=== PATIENT | male | born 1985 | race Caucasian/White ===

== ENCOUNTER 2019-01-04 09:53 | Emergency (ER) | payer BC ==
[2019-01-04] MEDS ORDERED: Ketorolac 30 MG/ML SDV IM ONE (10:33)
--- NOTE | 2019-01-04 10:57 | EDM.PDOC ---
ED HPI GENERAL MEDICAL PROBLEM - General Chief Complaint: Back Pain or Injury Stated Complaint: BACK PAIN Time Seen by Provider: 01/04/19 10:53 - History of Present Illness INITIAL COMMENTS - FREE TEXT/NARRATIVE: 33 y/o male here complaining of low back pain. States that he has a history of herniated lumbar discs about 10 years ago. Pain had been under control until the past 2 weeks. It has been getting worse with some paresthesias down right leg. No nausea, vomiting. No saddle anesthesia or troubles with bowel movements. He is able to ambulate without assistance. sensation and strength intact in lower extremities. Denies any recent trauma to back. He works at [employer] where he has s physically demanding job. right lower back Pain Score (Numeric/FACES): 10 - Related Data Allergies Allergy/AdvReac Type Severity Reaction Status Date / Time Penicillins Allergy Other Verified 01/04/19 10:02 Home Meds: Home Meds Diclofenac Sodium [Voltaren] 75 mg PO BIDMEALS PRN 15 Days #30 tab.cr 01/04/19 [ Rx] Orphenadrine [Norflex] 100 mg PO BID PRN 15 Days #30 tab 01/04/19 [Rx] predniSONE [Prednisone] 40 mg PO DAILY 5 Days #10 tablet 01/04/19 [Rx] Past Medical History Musculoskeletal History: Reports: Back Pain, Chronic Neurological History: Reports: Other (See Below) Other Neuro History: sciatica nerve pain Psychiatric History: Reports: Other (See Below) Other Psychiatric History: Tourretes - Infectious Disease History Infectious Disease History: Reports: TB - Past Surgical History HEENT Surgical History: Reports: Myringotomy w Tube(s) Social & Family History - Family History Family Medical History: Noncontributory - Tobacco Use Smoking Status *Q: Current Every Day Smoker Years of Tobacco use: 1 Packs/Tins Daily: 1 - Recreational Drug Use Recreational Drug Use: No ED ROS GENERAL - Review of Systems Review Of Systems: ROS reveals no pertinent complaints other than HPI. ED EXAM,LOWER BACK PAIN/INJURY - Physical Exam Exam: See Below General Appearance: Alert, WD/WN, No Apparent Distress Respiratory/Chest: No Respiratory Distress, Lungs Clear Cardiovascular: Normal Peripheral Pulses, Regular Rate, Rhythm GI/Abdominal: Normal Bowel Sounds, Soft, Non-Tender Back Exam: Muscle Spasm, Paraspinal Tenderness, Vertebral Tenderness, Other ( tenderness on lumbar spine and paraspinal muscles.) Extremities: Normal Inspection, No Pedal Edema, Other (some right leg paresthesias) Skin Exam: Warm, Dry Course - Vital Signs Text/Narrative:: Lumbar xray, toradol 60 mg IM once, Norflex 60 mg IM once. lumbar spine xray unremarkable, no acute fractures Last Recorded V/S: Last Vital Signs Temp 36.5 C 01/04/19 10:03 Pulse 87 01/04/19 10:03 Resp 18 01/04/19 10:03 BP 118/76 01/04/19 10:03 Pulse Ox 97 01/04/19 10:03 - Orders/Labs/Meds Meds: Medications Discontinued Medications Generic Name Dose Route Start Last Admin Trade Name Mian PRN Reason Stop Dose Admin Ketorolac Tromethamine 60 mg 01/04/19 10:33 01/04/19 11:11 Toradol IM 01/04/19 10:34 60 mg ONETIME ONE Administration Ketorolac Tromethamine Confirm 01/04/19 11:14 Toradol Administered 01/04/19 11:15 Dose 30 mg .ROUTE .STK-MED ONE Orphenadrine Citrate 60 mg 01/04/19 10:33 01/04/19 11:17 Norflex IM 01/04/19 10:34 Not Given NOW STA Departure - Departure Time of Disposition: 11:18 Disposition: Home, Self-Care 01 Clinical Impression: Low back pain - Discharge Information *PRESCRIPTION DRUG MONITORING PROGRAM REVIEWED*: Not Applicable *COPY OF PRESCRIPTION DRUG MONITORING REPORT IN PATIENT TOM: Not Applicable Prescriptions: Diclofenac Sodium [Voltaren] 75 mg PO BIDMEALS PRN 15 Days #30 tab.cr PRN Reason: Pain Orphenadrine [Norflex] 100 mg PO BID PRN 15 Days #30 tab PRN Reason: Muscle Spasm predniSONE [Prednisone] 40 mg PO DAILY 5 Days #10 tablet Referrals: PCP,Unknown [Primary Care Provider] - Forms: ED Department Discharge Additional Instructions: The following information is given to patients seen in the emergency department who are being discharged to home. This information is to outline your options for follow-up care. We provide all patients seen in our emergency department with a follow-up referral. The need for follow-up, as well as the timing and circumstances, are variable depending upon the specifics of your emergency department visit. If you don't have a primary care physician on staff, we will provide you with a referral. We always advise you to contact your personal physician following an emergency department visit to inform them of the circumstance of the visit and for follow-up with them and/or the need for any referrals to a consulting specialist. The emergency department will also refer you to a specialist when appropriate. This referral assures that you have the opportunity for follow-up care with a specialist. All of these measure are taken in an effort to provide you with optimal care, which includes your follow-up. Under all circumstances we always encourage you to contact your private physician who remains a resource for coordinating your care. When calling for follow-up care, please make the office aware that this follow-up is from your recent emergency room visit. If for any reason you are refused follow-up, please contact the [facility] Emergency Department at and asked to speak to the emergency department charge nurse. Follow-up with your PCP in 1-2 weeks.
[2019-01-04] MEDS ORDERED: Ketorolac 30 MG/ML SDV ONE (11:14)
--- NOTE | 2019-01-04 11:15 | CR ---
EXAMINATION: Lumbar spine HISTORY: Pain COMPARISON: None TECHNIQUE: AP and lateral FINDINGS: The lumbar spinal alignment is normal. The vertebral body heights and disc spaces appear maintained. SI joints are symmetric. No fracture or acute osseous abnormality. Bone mineralization is normal. 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 IMPRESSION: Grossly unremarkable lumbar spine.
== END 2019-01-04 11:35 | disposition home or self-care (01) ==
LOC: MW.ED 09:53
DX: M54.5 Low back pain (principal); F17.210 Nicotine dependence, cigarettes, uncomplicated; Z88.0 Allergy status to penicillin; Z96.22 Myringotomy tube(s) status
CPT/HCPCS: 72100; 96372; 99283; J1885

== ENCOUNTER 2019-08-14 13:06 | Observation (INO) | payer BC ==
[2019-08-14] MEDS ORDERED: methylPREDNISolone Sodium Succinate 125 MG/2 ML SDV IVPUSH ONE (13:08)
[2019-08-14] MEDS ORDERED: Ketorolac 30 MG/ML SDV IVPUSH ONE (13:13)
--- NOTE | 2019-08-14 13:18 | EDM.PDOC ---
ED HPI GENERAL MEDICAL PROBLEM - General Chief Complaint: Back Pain or Injury Stated Complaint: BACK PAIN AND SOB Time Seen by Provider: 08/14/19 13:08 Source of Information: Reports: Patient History Limitations: Reports: No Limitations - History of Present Illness INITIAL COMMENTS - FREE TEXT/NARRATIVE: HISTORY AND PHYSICAL: History of present illness: Patient is a 33-year-old male who presents to the emergency room with complaints of low lumbar back pain that radiates into his right glutes and down his leg. Patient states he has a history of chronic back pain with sciatica (10 + years). Reports for the past week he has been getting over the flu, while outside today he had a coughing fit and moved wrong. He said during that coughing fit he felt immediate sharp pain to his low lumbar back which "brought me to my knees". He called EMS to transport him to the emergency room. He denies hitting his head or having any injury related to being "brought to his knees". Denies any urinary or fecal incontinence. Although he has a tingling sensation down the right leg he has full sensation to bilateral distal extremities. Patient denies any fever, chills, headache, change in vision, syncope or near syncope. Denies any chest pain, back pain, shortness of breath or cough. Denies any abdominal pain, nausea, vomiting, diarrhea, constipation or dysuria. Has not noted any blood in urine or stool. Patient has been eating and drinking appropriately. Review of systems: As per history of present illness and below otherwise all systems reviewed and negative. Past medical history: As per history of present illness and as reviewed below otherwise noncontributory. Surgical history: As per history of present illness and as reviewed below otherwise noncontributory. Social history: See social history for further information Family history: As per history of present illness and as reviewed below otherwise noncontributory. Physical exam: General: Well-developed and well-nourished 33-year-old male. Alert and oriented. Nontoxic-appearing and in no acute distress. HEENT: Atraumatic, normocephalic, pupils equal and reactive bilaterally, negative for conjunctival pallor or scleral icterus, mucous membranes moist, TMs normal bilaterally, throat clear, neck supple, nontender, trachea midline. No drooling or trismus noted. No meningeal signs. No hot potato voice noted. Lungs: Clear to auscultation, breath sounds equal bilaterally, chest nontender. Heart: S1S2, regular rate and rhythm without overt murmur Abdomen: Soft, nondistended, nontender. Negative for masses or hepatosplenomegaly. Negative for costovertebral tenderness. C-spine/Back: No pinpoint vertebral tenderness upon palpation. No crepitus, step -offs or obvious deformities. Patient is able to move around on the cot and has good equal force of bilateral lower extremities. Good sensation to bilat LE. Denies any urinary or fecal incontinence. Good rectal tone (done with consent and pretzel packer at bedside). Denies any numbness, tingling or saddle paresthesia. Skin: Intact, warm, dry. No lesions or rashes noted. Extremities: Atraumatic, moves all extremities per self without difficulty or deficits, negative for cords or calf pain. Neurovascular unremarkable. Neuro: Awake, alert, oriented. Cranial nerves II through XII unremarkable. Cerebellum unremarkable. Motor and sensory unremarkable throughout. Exam nonfocal. Notes: Patient had 100 mcg of fentanyl prior to arrival by EMS. He is requesting something additional for pain. Norflex, Toradol and Solu-Medrol given at this time. Patient reports he got no relief from the medications he received. We will give 1 mg of Dilaudid. Imaging findings disc bulging of the left neural foramina causing stenosis (patient has no pain to left side). Posterior spurring into the right neural foramina impinging upon the right L4 nerve root with nerve root appearing to be swollen. These findings were shared with the patient. We discussed the need for follow up with his PCP; would like him to have an MRI. He states its been about 10 years since he has had an MRI. Upon preparing the patient for discharge he states he is in too much pain to ambulate. Nursing staff did attempt to get the patient up and states he is unable to. Dr. Lambert was consulted on this case and is agreeable to keeping him for pain management for observation. Patient is aware and agreeable to plan of care. Basic lab work was added at this time. Diagnostics: LS CT, CBC, CMP, [employer]: Toradol, Norflex, Solu-Medrol, Dilaudid Prescription: Gabapentin, Medrol Impression: Intractable back pain Plan: Observation admission to med/surg Definitive disposition and diagnosis as appropriate pending reevaluation and review of above. lower back, down right leg Pain Score (Numeric/FACES): 9 - Related Data Allergies Allergy/AdvReac Type Severity Reaction Status Date / Time Penicillins Allergy Other Verified 08/14/19 13:12 sulfamethoxazole Allergy Other Verified 08/14/19 13:12 [From Bactrim] trimethoprim [From Bactrim] Allergy Other Verified 08/14/19 13:12 Home Meds: Home Meds Naproxen Sodium [Aleve] 1 tab PO BID 08/14/19 [History] Past Medical History Musculoskeletal History: Reports: Back Pain, Chronic Neurological History: Reports: Other (See Below) Other Neuro History: sciatica nerve pain Psychiatric History: Reports: Other (See Below) Other Psychiatric History: Tourretes - Infectious Disease History Infectious Disease History: Reports: TB - Past Surgical History HEENT Surgical History: Reports: Myringotomy w Tube(s) Social & Family History - Family History Family Medical History: Noncontributory ED ROS GENERAL - Review of Systems Review Of Systems: Comprehensive ROS is negative, except as noted in HPI. ED EXAM,LOWER BACK PAIN/INJURY - Physical Exam Exam: See Below (See dictation) Course - Vital Signs Last Recorded V/S: Last Vital Signs Temp 98.1 F 08/14/19 13:07 Pulse 80 08/14/19 14:28 Resp 20 08/14/19 14:28 BP 118/67 08/14/19 14:28 Pulse Ox 97 08/14/19 14:28 - Orders/Labs/Meds Orders: Active Orders 24 hr Category Date Time Status Admission Status [Patient Status] [ADT] Stat ADT 08/14/19 15:13 Ordered Cardiac Monitoring [RC] . DIRECTED Care 08/14/19 15:13 Ordered CBC WITH AUTO DIFF [HEME] Stat Lab 08/14/19 15:13 Ordered COMPREHENSIVE METABOLIC PN,CMP [CHEM] Stat Lab 08/14/19 15:13 Ordered UA RFX JAZMIN AND CULT IF INDIC [URIN] Stat Lab 08/14/19 15:13 Ordered Meds: Medications Discontinued Medications Generic Name Dose Route Start Last Admin Trade Name Freq PRN Reason Stop Dose Admin Hydromorphone HCl 1 mg 08/14/19 14:28 08/14/19 14:37 Dilaudid IVPUSH 08/14/19 14:29 1 mg ONETIME ONE Administration Ketorolac Tromethamine 30 mg 08/14/19 13:13 08/14/19 13:33 Toradol IVPUSH 08/14/19 13:14 30 mg ONETIME ONE Administration Methylprednisolone Sodium Succinate 125 mg 08/14/19 13:08 08/14/19 13:34 Solu-Medrol IVPUSH 08/14/19 13:09 125 mg ONETIME ONE Administration Orphenadrine Citrate 60 mg 08/14/19 13:13 08/14/19 13:36 Norflex IM 08/14/19 13:14 60 mg ONETIME ONE Administration Departure - Departure Time of Disposition: 14:49 Disposition: Refer to Observation Clinical Impression: Intractable low back pain - Discharge Information Instructions: Sciatica, [id number] Referrals: PCP,None [Primary Care Provider] - Forms: ED Department Discharge Additional Instructions: The following information is given to patients seen in the emergency department who are being discharged to home. This information is to outline your options for follow-up care. We provide all patients seen in our emergency department with a follow-up referral. The need for follow-up, as well as the timing and circumstances, are variable depending upon the specifics of your emergency department visit. If you don't have a primary care physician on staff, we will provide you with a referral. We always advise you to contact your personal physician following an emergency department visit to inform them of the circumstance of the visit and for follow-up with them and/or the need for any referrals to a consulting specialist. The emergency department will also refer you to a specialist when appropriate. This referral assures that you have the opportunity for follow-up care with a specialist. All of these measure are taken in an effort to provide you with optimal care, which includes your follow-up. Under all circumstances we always encourage you to contact your private physician who remains a resource for coordinating your care. When calling for follow-up care, please make the office aware that this follow-up is from your recent emergency room visit. If for any reason you are refused follow-up, please contact the [facility] Emergency Department at and asked to speak to the emergency department charge nurse. [facility] [address] [place] [id number] [facility] [address] [facility] [place] [address] 1. The medication you received today does cause drowsiness, so do not drive for the remaining day 2. When resting please lay on a flat firm surface. Limit your immobility to prevent muscle stiffness. Get up to ambulate/move around/gentle stretching multiple times throughout the day. May alternate heat and ice to the painful areas 3. Tylenol and Ibuprofen as needed for back pain. Gabapentin is a controlled medication, this medication may cause drowsiness a do not take it will driving her needing to be functioning outside of the house. 4. Please follow-up with your primary care provider as we discussed. Would like you to get an MRI in the future. Return to the ED as needed and as discussed. Sepsis Event Note - Evaluation Sepsis Screening Result: No Definite Risk - Focused Exam Vital Signs: Vital Signs Temp Pulse Resp BP Pulse Ox 08/14/19 14:28 80 20 118/67 97 08/14/19 13:07 98.1 F 87 26 H 122/71 100 Date Exam was Performed: 08/14/19 Time Exam was Performed: 15:14 - My Orders Last 24 Hours: My Active Orders 08/14/19 15:13 Admission Status [Patient Status] [ADT] Stat Cardiac Monitoring [RC] . DIRECTED CBC WITH AUTO DIFF [HEME] Stat COMPREHENSIVE METABOLIC PN,CMP [CHEM] Stat UA RFX JAZMIN AND CULT IF INDIC [URIN] Stat - Assessment/Plan Last 24 Hours: My Active Orders 08/14/19 15:13 Admission Status [Patient Status] [ADT] Stat Cardiac Monitoring [RC] . DIRECTED CBC WITH AUTO DIFF [HEME] Stat COMPREHENSIVE METABOLIC PN,CMP [CHEM] Stat UA RFX JAZMIN AND CULT IF INDIC [URIN] Stat
[2019-08-14] MEDS ORDERED: HYDROmorphone 1 MG/ML Syringe IVPUSH ONE (14:28)
--- NOTE | 2019-08-14 14:32 | CT ---
CT lumbar spine Technique: Multiple axial sections were obtained from above the T8-9 disc inferiorly through the lower sacrum. Reconstructed sagittal and coronal images were reviewed. Findings: T8-9: Mild disc space narrowing is seen. Posterior disc shows no discrete herniation. No central canal stenosis or neural foraminal stenosis is seen. Mild degenerative apophyseal change is noted on both sides. T9-10: Moderate disc space narrowing is noted. No focal disc herniation is seen. No central canal stenosis or neural foraminal stenosis is seen. Moderate degenerative apophyseal change is noted with spurring and vacuum phenomena. T10-11: Posterior disc space narrowing is seen. Posterior disc is preserved. No central canal stenosis or neural foraminal stenosis is seen. Mild degenerative apophyseal change is seen. T11-12: Posterior disc space narrowing is seen. Posterior disc is preserved. No central canal stenosis or neural foraminal stenosis is seen. Mild degenerative apophyseal change is seen. T12-L1: Slight posterior disc space narrowing is seen. Posterior disc is preserved. No central canal stenosis or neural foraminal stenosis is seen. Mild degenerative apophyseal change is seen. L1-2: Mild posterior disc space narrowing is seen. Posterior disc is preserved. No central canal stenosis or neural foraminal stenosis is seen. Mild degenerative apophyseal change is seen. L2-3: Disc height is preserved. Posterior disc is maintained. No central canal stenosis or neural foraminal stenosis is seen. L3-4: Mild disc space narrowing is seen. Slight circumferential disc bulge is present. Posterior disc maintains a minimally concave margin. No central canal stenosis or neural foraminal stenosis is seen. Minimal degenerative apophyseal change is seen. L4-5: Posterior spurring seen into the right neural foramina which impinges upon the exiting right L4 nerve root and appears to cause swelling of this nerve root. Left neural foramina is patent. No central canal stenosis is seen. Slight circumferential disc bulge is seen. L5-S1: Asymmetric disc bulge or herniation seen into the left neural foramina. This causes left-sided neural foraminal stenosis. Right neural foramina is patent with a nerve root exits. No central canal stenosis is seen. No fracture is appreciated. Mild scoliosis is noted. No abnormal subluxation is seen. Impression: 1. Disc bulge or herniation into the left neural foramina causing left-sided neural foraminal stenosis. Left exiting nerve root not visualized with certainty. 2. Posterior spurring into the right neural foramina impinging upon the right L4 nerve root with nerve root appearing to be swollen. 3. Other mild scattered degenerative change as noted above. MRI would be helpful to confirm above findings if clinically needed. Diagnostic code #3 This report was dictated in [place] Standard Time
[2019-08-14 15:50] LABS: BLOOD UREA NITROGEN,BUN 20 mg/dL (7.0-18.0); CARBON DIOXIDE,CO2 28.1 mmol/L (21.0-32.0); CHLORIDE,CL 105 mmol/L (98-107); GLUCOSE RANDOM 99 mg/dL (74-106); POTASSIUM,K 4.5 mmol/L (3.5-5.1); SODIUM,NA 142 mmol/L (136-148)
[2019-08-14] MEDS ORDERED: Acetaminophen 325 MG Tab PO PRN (17:19)
[2019-08-14] MEDS ORDERED: Sodium Chloride 0.9% 10 ML Syringe FLUSH PRN (17:20)
[2019-08-14] MEDS ORDERED: Sodium Chloride 0.9% 2.5 ML Syringe FLUSH PRN (17:20)
[2019-08-14] MEDS ORDERED: Morphine 2 MG/ML Syringe IVPUSH PRN (17:20)
[2019-08-14] MEDS: oxyCODONE 5 MG Tab PO PRN (18:25)
[2019-08-14] MEDS ORDERED: Ibuprofen 400 MG Tab PO PRN (23:01)
[2019-08-14] MEDS ORDERED: Ondansetron 4 MG Tab.DIS PO PRN (23:01)
--- NOTE | 2019-08-14 23:12 | PCM.HP.2 ---
H&P History of Present Illness - General Date of Service: 08/14/19 Admit Problem/Dx: Admission Diagnosis/Problem Admission Diagnosis/Problem Intractable back pain - History of Present Illness Initial Comments - Free Text/Narative: 33 yo male with past medial history of chronic back pain who presented to the ED with acute flare of his back pain. Patient reports his back had not been bothering him for several years. He reported having the flu two weeks ago. He states he had a coughing fit that triggered his back pain. He reports pain in his lower back that radiates down to the right leg. The pain was severe enough that he was unable to walk. He called EMS and the brought him to the ER. IN the ER he had a CT scan of the lumbar spine which reported disc bulge into the left neural foramina causing left sided neural foraminal stenossi, Posterior spurring nto the right neural foraminal impinging upon the right L4 nerve root. lower back, down right leg Pain Score (Numeric/FACES): 9 - Related Data Allergies/Adverse Reactions: Allergies Allergy/AdvReac Type Severity Reaction Status Date / Time Penicillins Allergy Other Verified 08/14/19 17:17 sulfamethoxazole Allergy Other Verified 08/14/19 17:17 [From Bactrim] trimethoprim [From Bactrim] Allergy Other Verified 08/14/19 17:17 Home Medications: Home Meds Naproxen Sodium [Aleve] 1 tab PO BID 08/14/19 [History] Past Medical History Respiratory History: Reports: Asthma Musculoskeletal History: Reports: Back Pain, Chronic Neurological History: Reports: Other (See Below) Other Neuro History: sciatica nerve pain Psychiatric History: Reports: Other (See Below) Other Psychiatric History: Tourretes - Infectious Disease History Infectious Disease History: Reports: TB Other Infectious Disease History: Patient stated he underwent treatment for 9 months - Past Surgical History HEENT Surgical History: Reports: Myringotomy w Tube(s) Social & Family History - Family History Family Medical History: Noncontributory - Tobacco Use Smoking Status *Q: Current Every Day Smoker Years of Tobacco use: 12 Packs/Tins Daily: 1 Second Hand Smoke Exposure: No - Caffeine Use Caffeine Use: Reports: Energy Drinks, Tea - Recreational Drug Use Recreational Drug Use: No H&P Review of Systems - Review of Systems: Review Of Systems: Comprehensive ROS is negative, except as noted in HPI. Exam - Vital Signs Vital Signs: Last Vital Signs Temp 36.6 C 08/14/19 19:45 Pulse 90 08/14/19 19:45 Resp 16 08/14/19 19:45 BP 127/60 08/14/19 19:45 Pulse Ox 95 08/14/19 19:45 Weight: 106.594 kg - Exam General: Alert, Oriented HEENT: Mucosa Moist & [place] Neck: Supple, Trachea Midline Lungs: Clear to Auscultation, Normal Respiratory Effort Cardiovascular: Regular Rate, Regular Rhythm GI/Abdominal Exam: Normal Bowel Sounds, Soft, Non-Tender Back Exam: Paraspinal Tenderness (lower lumbar, sacral area) Extremities: Normal Inspection, Non-Tender, No Pedal Edema Skin: Warm, Dry, Intact Neurological: Cranial Nerves Intact, Reflexes Equal Bilateral, Strength Equal Bilateral, Normal Tone, Sensation Intact, Other (full range of motion of both legs and feet.). No: Focal Deficit - Patient Data Lab Results Last 24 hrs: Laboratory Results - last 24 hr 08/14/19 08/14/19 08/14/19 Range/Units 15:22 15:22 19:15 WBC 14.08 H (4.0-11.0) K/uL RBC 5.10 (4.50-5.90) M/uL Hgb 16.5 (13.0-17.0) g/dL Hct 46.4 (38.0-50.0) % MCV 91.0 (80.0-98.0) fL MCH 32.4 H (27.0-32.0) pg MCHC 35.6 (31.0-37.0) g/dL RDW Std Deviation 41.5 (28.0-62.0) fl RDW Coeff of [place] 12 (11.0-15.0) % Plt Count 370 (150-400) K/uL MPV 9.70 (7.40-12.00) fL Neut % (Auto) 87.5 H (48.0-80.0) % Lymph % (Auto) 7.4 L (16.0-40.0) % [place] % (Auto) 4.5 (0.0-15.0) % Eos % (Auto) 0.4 (0.0-7.0) % Baso % (Auto) 0.2 (0.0-1.5) % Neut # (Auto) 12.3 H (1.4-5.7) K/uL Lymph # (Auto) 1.0 (0.6-2.4) K/uL [place] # (Auto) 0.6 (0.0-0.8) K/uL Eos # (Auto) 0.1 (0.0-0.7) K/uL Baso # (Auto) 0.0 (0.0-0.1) K/uL Nucleated RBC % 0.0 /100WBC Nucleated RBCs # 0 K/uL Sodium 142 (136-148) mmol/L Potassium 4.5 (3.5-5.1) mmol/L Chloride 105 (98-107) mmol/L Carbon Dioxide 28.1 (21.0-32.0) mmol/L BUN 20 H (7.0-18.0) mg/dL Creatinine 1.1 (0.8-1.3) mg/dL Est Cr Clr Drug Dosing 104.84 mL/min Estimated GFR (MDRD) > 60.0 ml/min Glucose 99 (74-106) mg/dL Calcium 8.9 (8.5-10.1) mg/dL Total Bilirubin 0.6 (0.2-1.0) mg/dL AST 19 (15-37) IU/L ALT 44 (14-63) IU/L Alkaline Phosphatase 88 (46-116) U/L Total Protein 7.3 (6.4-8.2) g/dL Albumin 4.1 (3.4-5.0) g/dL Globulin 3.2 (2.6-4.0) g/dL Albumin/Globulin Ratio 1.3 (0.9-1.6) Urine Color YELLOW Urine Appearance CLEAR Urine pH 8.5 H (5.0-8.0) Ur Specific [place] 1.020 (1.001-1.035) Urine Protein NEGATIVE (NEGATIVE) mg/dL Urine Glucose (UA) NEGATIVE (NEGATIVE) mg/dL Urine Ketones NEGATIVE (NEGATIVE) mg/dL Urine Occult Blood NEGATIVE (NEGATIVE) Urine Nitrite NEGATIVE (NEGATIVE) Urine Bilirubin NEGATIVE (NEGATIVE) Urine Urobilinogen 0.2 (<2.0) EU/dL Ur Leukocyte Esterase NEGATIVE (NEGATIVE) Result Diagrams: 08/14/19 15:22 08/14/19 15:22 Sepsis Event Note - Evaluation Sepsis Screening Result: No Definite Risk - Focused Exam Vital Signs: Vital Signs Temp Pulse Resp BP Pulse Ox 08/14/19 19:45 36.6 C 90 16 127/60 95 08/14/19 16:00 36.5 C 86 18 155/80 H 100 08/14/19 14:28 80 20 118/67 97 08/14/19 13:07 36.7 C 87 26 H 122/71 100 Date Exam was Performed: 08/14/19 Time Exam was Performed: 23:06 Problem List Initiated/Reviewed/Updated: Yes Orders Last 24hrs: Active Orders 24 hr Category Date Time Status Admission Status [Patient Status] [ADT] Stat ADT 08/14/19 15:13 Active Antiembolic Devices [RC] PER UNIT ROUTINE Care 08/14/19 23:06 Ordered Cardiac Monitoring [RC] . DIRECTED Care 08/14/19 15:13 Active Oxygen Therapy [RC] PRN Care 08/14/19 23:01 Ordered Up ad Starla [RC] ASDIRECTED Care 08/14/19 23:01 Ordered VTE/DVT Education [RC] PER UNIT ROUTINE Care 08/14/19 23:01 Ordered Vital Signs [RC] Q4H Care 08/14/19 23:01 Ordered Regular Diet [DIET] Diet 08/14/19 Dinner Active BASIC METABOLIC PANEL,BMP [CHEM] AM Lab 08/15/19 05:11 Ordered CBC WITH AUTO DIFF [HEME] AM Lab 08/15/19 05:11 Ordered Acetaminophen [Tylenol] Med 08/14/19 17:19 Active 650 mg PO Q6H PRN Ibuprofen [Motrin] Med 08/14/19 23:01 Ordered 400 mg PO Q6H PRN Morphine Med 08/14/19 17:20 Active 2 mg IVPUSH Q3H PRN Ondansetron [Zofran ODT] Med 08/14/19 23:01 Ordered 4 mg PO Q4H PRN Sodium Chloride 0.9% [Saline Flush] Med 08/14/19 17:20 Active 10 ml FLUSH ASDIRECTED PRN Sodium Chloride 0.9% [Saline Flush] Med 08/14/19 17:20 Active 2.5 ml FLUSH ASDIRECTED PRN oxyCODONE Med 08/14/19 17:19 Active 5 mg PO Q4H PRN Convert IV to Saline Lock [OM.PC] Routine Oth 08/14/19 17:20 Ordered Sequential Compression Device [OM.PC] Per Unit Routine Oth 08/14/19 23:02 Ordered Resuscitation Status Routine Resus Stat 08/14/19 23:01 Ordered Medication Orders Acetaminophen (Tylenol) 650 mg PO Q6H PRN PRN Reason: Pain Morphine Sulfate (Morphine) 2 mg IVPUSH Q3H PRN PRN Reason: Pain Oxycodone HCl (Oxycodone) 5 mg PO Q4H PRN PRN Reason: Pain Last Admin: 08/14/19 18:25 Dose: 5 mg Sodium Chloride (Saline Flush) 10 ml FLUSH ASDIRECTED PRN PRN Reason: Keep Vein Open Sodium Chloride (Saline Flush) 2.5 ml FLUSH ASDIRECTED PRN PRN Reason: Keep Vein Open Assessment/Plan Comment:: 33 yo male admitted with acute lumbar radiculopathy. We will treat with tylenol and NSAIDs. Due to the acute and severe nature of back pain will treat with oxycodone while in hospital.
[2019-08-15] MEDS: oxyCODONE 5 MG Tab PO PRN ×2 (03:23→08:03)
[2019-08-15 06:02] LABS: BLOOD UREA NITROGEN,BUN 22 mg/dL (7.0-18.0); CARBON DIOXIDE,CO2 26.5 mmol/L (21.0-32.0); CHLORIDE,CL 104 mmol/L (98-107); GLUCOSE RANDOM 114 mg/dL (74-106); POTASSIUM,K 4.7 mmol/L (3.5-5.1); SODIUM,NA 140 mmol/L (136-148)
[2019-08-15] MEDS ORDERED: Polyethylene Glycol 3350 Powder 17 GM Packet PO PRN (09:15)
[2019-08-15] MEDS ORDERED: Cyclobenzaprine 10 MG Tab PO PRN (09:15)
[2019-08-15] MEDS ORDERED: Docusate Sodium 100 MG Cap PO SCH (09:30)
--- NOTE | 2019-08-15 11:38 | PCM.DCSUM1 ---
Discharge Summary - Hospital Course Brief History: 33 yo male with past medial history of chronic back pain who presented to the ED with acute flare of his back pain. Patient reports his back had not been bothering him for several years. He reported having the flu two weeks ago. He states he had a coughing fit that triggered his back pain. He reports pain in his lower back that radiates down to the right leg. The pain was severe enough that he was unable to walk. He called EMS and the brought him to the ER. IN the ER he had a CT scan of the lumbar spine which reported disc bulge into the left neural foramina causing left sided neural foraminal stenossi, Posterior spurring into the right neural foraminal impinging upon the right L4 nerve root. Diagnosis: Stroke: No Modified Cortez Scale: No Symptoms at All Modified Gigi Scale Score: 0 - Discharge Data Discharge Date: 08/15/19 Discharge Disposition: Home, Self-Care 01 Condition: Stable - Referral to Home Health Primary Care Physician: PCP None - Discharge Diagnosis/Problem(s) (1) Lumbar radicular pain SNOMED Code(s): 927139098 ICD Code: M54.16 - RADICULOPATHY, LUMBAR REGION Status: Acute Current Visit: Yes (2) Lumbar pain with radiation down right leg SNOMED Code(s): 710549675, 403006601 ICD Code: M54.5 - LOW BACK PAIN Status: Acute Current Visit: Yes (3) Intractable low back pain SNOMED Code(s): 91885937990469351 ICD Code: M54.5 - LOW BACK PAIN Status: Acute Current Visit: Yes - Patient Summary/Data Consults: Consultations 08/14/19 23:07 PT Evaluation and Treatment [CONS] Routine - Patient Instructions Diet: Regular Diet as Tolerated Activity: As Tolerated, No Strenuous Activities Driving: Do Not Drive Showering/Bathing: May Shower Notify Provider of: Fever, Increased Pain, Swelling and Redness, Drainage, Nausea and/or Vomiting Other/Special Instructions: rotate heat and ice to back as tolerated, 20 minutes on 20 minutes off - Discharge Plan *PRESCRIPTION DRUG MONITORING PROGRAM REVIEWED*: Not Applicable *COPY OF PRESCRIPTION DRUG MONITORING REPORT IN PATIENT TOM: Not Applicable Prescriptions/Med Rec: Cyclobenzaprine [Flexeril] 10 mg PO TID PRN #15 tablet PRN Reason: back spasm Home Medications: Home Meds Naproxen Sodium [Aleve] 1 tab PO BID 08/14/19 [History] Acetaminophen [Tylenol] 650 mg PO Q6H PRN tablet 08/15/19 [Rx] Cyclobenzaprine [Flexeril] 10 mg PO TID PRN #15 tablet 08/15/19 [Rx] Docusate Sodium [Colace] 100 mg PO BID cap 08/15/19 [Rx] polyethylene glycoL 3350 [MiraLAX] 17 gm PO DAILY PRN packet 08/15/19 [Rx] Oxygen Therapy Mode: Room Air Patient Handouts: Cyclobenzaprine tablets, Sciatica, [id number] Referrals: [facility] [Outside] Ava Bailey MD [Resident] - 08/22/19 2:30 pm - Discharge Summary/Plan Comment DC Time >30 min.: No Discharge Summary/Plan Comment: Admitting Diagnoses: Lumbar radiculopathy Discharge Diagnoses: Lumbar radiculopathy Zack was admitted for acute exacerbation of lumbar pain. He was treated with Oxycodone, Tylenol and Ibuprofen. In the ED he was given Norflex, Solumedrol and Toradol along with Dilaudid. He was evaluated by PT this morning, able to ambulate to bathroom and back x 2, had pain but it was doable. He denies any neurological deficits. He is able to urinate and had BM ok, no incontinence. He is asking for discharge today. I will discharge home home on Tylenol, Aleve, and Flexeril as well as bowel regimen. He is to heat and ice PRN pain. He is to have light work duty at work, no heavy lifting. Rest the next day or two. No I did send referral for neurosurgery consult in [place], per patient request. He is to follow up with PCP here as well which will be arranged for him. He is to return to ED or clinic if concerns should arise. - Patient Data Vitals - Most Recent: Last Vital Signs Temp 98.3 F 08/15/19 07:50 Pulse 63 08/15/19 07:50 Resp 16 08/15/19 07:50 BP 106/56 L 08/15/19 07:50 Pulse Ox 96 08/15/19 07:50 Weight - Most Recent: 106.594 kg I&O - Last 24 hours: Intake & Output 08/14/19 08/15/19 08/15/19 22:59 06:59 14:59 Intake Total 200 650 Output Total 850 Balance 200 -200 Lab Results - Last 24 hrs: Laboratory Results - last 24 hr 08/14/19 08/14/19 08/14/19 Range/Units 15:22 15:22 19:15 WBC 14.08 H (4.0-11.0) K/uL RBC 5.10 (4.50-5.90) M/uL Hgb 16.5 (13.0-17.0) g/dL Hct 46.4 (38.0-50.0) % MCV 91.0 (80.0-98.0) fL MCH 32.4 H (27.0-32.0) pg MCHC 35.6 (31.0-37.0) g/dL RDW Std Deviation 41.5 (28.0-62.0) fl RDW Coeff of [place] 12 (11.0-15.0) % Plt Count 370 (150-400) K/uL MPV 9.70 (7.40-12.00) fL Neut % (Auto) 87.5 H (48.0-80.0) % Lymph % (Auto) 7.4 L (16.0-40.0) % [place] % (Auto) 4.5 (0.0-15.0) % Eos % (Auto) 0.4 (0.0-7.0) % Baso % (Auto) 0.2 (0.0-1.5) % Neut # (Auto) 12.3 H (1.4-5.7) K/uL Lymph # (Auto) 1.0 (0.6-2.4) K/uL [place] # (Auto) 0.6 (0.0-0.8) K/uL Eos # (Auto) 0.1 (0.0-0.7) K/uL Baso # (Auto) 0.0 (0.0-0.1) K/uL Nucleated RBC % 0.0 /100WBC Nucleated RBCs # 0 K/uL Sodium 142 (136-148) mmol/L Potassium 4.5 (3.5-5.1) mmol/L Chloride 105 (98-107) mmol/L Carbon Dioxide 28.1 (21.0-32.0) mmol/L BUN 20 H (7.0-18.0) mg/dL Creatinine 1.1 (0.8-1.3) mg/dL Est Cr Clr Drug Dosing 104.84 mL/min Estimated GFR (MDRD) > 60.0 ml/min Glucose 99 (74-106) mg/dL Calcium 8.9 (8.5-10.1) mg/dL Total Bilirubin 0.6 (0.2-1.0) mg/dL AST 19 (15-37) IU/L ALT 44 (14-63) IU/L Alkaline Phosphatase 88 (46-116) U/L Total Protein 7.3 (6.4-8.2) g/dL Albumin 4.1 (3.4-5.0) g/dL Globulin 3.2 (2.6-4.0) g/dL Albumin/Globulin Ratio 1.3 (0.9-1.6) Urine Color YELLOW Urine Appearance CLEAR Urine pH 8.5 H (5.0-8.0) Ur Specific [place] 1.020 (1.001-1.035) Urine Protein NEGATIVE (NEGATIVE) mg/dL Urine Glucose (UA) NEGATIVE (NEGATIVE) mg/dL Urine Ketones NEGATIVE (NEGATIVE) mg/dL Urine Occult Blood NEGATIVE (NEGATIVE) Urine Nitrite NEGATIVE (NEGATIVE) Urine Bilirubin NEGATIVE (NEGATIVE) Urine Urobilinogen 0.2 (<2.0) EU/dL Ur Leukocyte Esterase NEGATIVE (NEGATIVE) 08/15/19 08/15/19 Range/Units 05:40 05:40 WBC 13.37 H (4.0-11.0) K/uL RBC 5.26 (4.50-5.90) M/uL Hgb 16.6 (13.0-17.0) g/dL Hct 48.2 (38.0-50.0) % MCV 91.6 (80.0-98.0) fL MCH 31.6 (27.0-32.0) pg MCHC 34.4 (31.0-37.0) g/dL RDW Std Deviation 41.9 (28.0-62.0) fl RDW Coeff of [place] 13 (11.0-15.0) % Plt Count 400 (150-400) K/uL MPV 9.60 (7.40-12.00) fL Neut % (Auto) 78.5 (48.0-80.0) % Lymph % (Auto) 10.7 L (16.0-40.0) % [place] % (Auto) 10.7 (0.0-15.0) % Eos % (Auto) 0.0 (0.0-7.0) % Baso % (Auto) 0.1 (0.0-1.5) % Neut # (Auto) 10.5 H (1.4-5.7) K/uL Lymph # (Auto) 1.4 (0.6-2.4) K/uL [place] # (Auto) 1.4 H (0.0-0.8) K/uL Eos # (Auto) 0.0 (0.0-0.7) K/uL Baso # (Auto) 0.0 (0.0-0.1) K/uL Nucleated RBC % 0.0 /100WBC Nucleated RBCs # 0 K/uL Sodium 140 (136-148) mmol/L Potassium 4.7 (3.5-5.1) mmol/L Chloride 104 (98-107) mmol/L Carbon Dioxide 26.5 (21.0-32.0) mmol/L BUN 22 H (7.0-18.0) mg/dL Creatinine 1.0 (0.8-1.3) mg/dL Est Cr Clr Drug Dosing 115.32 mL/min Estimated GFR (MDRD) > 60.0 ml/min Glucose 114 H (74-106) mg/dL Calcium 9.1 (8.5-10.1) mg/dL Total Bilirubin (0.2-1.0) mg/dL AST (15-37) IU/L ALT (14-63) IU/L Alkaline Phosphatase (46-116) U/L Total Protein (6.4-8.2) g/dL Albumin (3.4-5.0) g/dL Globulin (2.6-4.0) g/dL Albumin/Globulin Ratio (0.9-1.6) Urine Color Urine Appearance Urine pH (5.0-8.0) Ur Specific [place] (1.001-1.035) Urine Protein (NEGATIVE) mg/dL Urine Glucose (UA) (NEGATIVE) mg/dL Urine Ketones (NEGATIVE) mg/dL Urine Occult Blood (NEGATIVE) Urine Nitrite (NEGATIVE) Urine Bilirubin (NEGATIVE) Urine Urobilinogen (<2.0) EU/dL Ur Leukocyte Esterase (NEGATIVE) Med Orders - Current: Current Medications Acetaminophen (Tylenol) 650 mg PO Q6H PRN PRN Reason: Pain Last Admin: 08/15/19 10:33 Dose: 650 mg Cyclobenzaprine HCl (Flexeril) 10 mg PO TID PRN PRN Reason: back spasm Docusate Sodium (Colace) 100 mg PO BID ALEYDA Last Admin: 08/15/19 10:33 Dose: 100 mg Ibuprofen (Motrin) 400 mg PO Q6H PRN PRN Reason: Pain (mild 1-3) Morphine Sulfate (Morphine) 2 mg IVPUSH Q3H PRN PRN Reason: Pain Ondansetron HCl (Zofran Odt) 4 mg PO Q4H PRN PRN Reason: nausea, able to take PO Oxycodone HCl (Oxycodone) 5 mg PO Q4H PRN PRN Reason: Pain Last Admin: 08/15/19 08:03 Dose: 5 mg Polyethylene Glycol (Miralax) 17 gm PO DAILY PRN PRN Reason: constipation no stool in 2 day Sodium Chloride (Saline Flush) 10 ml FLUSH ASDIRECTED PRN PRN Reason: Keep Vein Open Sodium Chloride (Saline Flush) 2.5 ml FLUSH ASDIRECTED PRN PRN Reason: Keep Vein Open Discontinued Medications Hydromorphone HCl (Dilaudid) 1 mg IVPUSH ONETIME ONE Stop: 08/14/19 14:29 Last Admin: 08/14/19 14:37 Dose: 1 mg Ketorolac Tromethamine (Toradol) 30 mg IVPUSH ONETIME ONE Stop: 08/14/19 13:14 Last Admin: 08/14/19 13:33 Dose: 30 mg Methylprednisolone Sodium Succinate (Solu-Medrol) 125 mg IVPUSH ONETIME ONE Stop: 08/14/19 13:09 Last Admin: 08/14/19 13:34 Dose: 125 mg Orphenadrine Citrate (Norflex) 60 mg IM ONETIME ONE Stop: 08/14/19 13:14 Last Admin: 08/14/19 13:36 Dose: 60 mg
== END 2019-08-15 12:15 | disposition home or self-care (01) ==
LOC: MW.ED 13:06 → MW.MS 15:13
PROVIDERS: ADMIT Internal Medicine; ATTEND Internal Medicine
DX: M54.16 Radiculopathy, lumbar region (principal); G89.29 Other chronic pain; J45.909 Unspecified asthma, uncomplicated; F17.210 Nicotine dependence, cigarettes, uncomplicated; Z88.0 Allergy status to penicillin; Z88.2 Allergy status to sulfonamides; Z88.8 Allergy status to other drugs, medicaments and biological substances
CPT/HCPCS: 36415; 72131; 80048; 80053; 81003; 85025; 96372; 96374; 96375; 97161; 99285; A9270; J1170; J1885; J2360; J2930; G0378

== ENCOUNTER 2021-03-24 12:09 | Emergency (ER) | payer BC ==
[2021-03-24] MEDS ORDERED: Dexamethasone 10 MG/ML SDV IM STA (12:47)
--- NOTE | 2021-03-24 12:53 | EDM.PDOC ---
ED HPI GENERAL MEDICAL PROBLEM - General Chief Complaint: Lower Extremity Injury/Pain Stated Complaint: BACK PAIN Time Seen by Provider: 03/24/21 12:25 - History of Present Illness INITIAL COMMENTS - FREE TEXT/NARRATIVE: History of present illness: The patient has severe pain in back starting over. Of 24 hours. He lifts heavy objects at work. He lifts properly from his legs not bending over. The patient has a history of disc disease. The patient has a history of sciatica related to his disc disease. The patient's been on steroids and muscle relaxers before. He has no history of drug addiction or addictive personality. [] Review of systems: As per history of present illness and below otherwise all systems reviewed and negative. Past medical history: As per history of present illness and as reviewed below otherwise noncontributory. Surgical history: As per history of present illness and as reviewed below otherwise noncontributory. Social history: No reported history of drug or alcohol abuse. Family history: As per history of present illness and as reviewed below otherwise noncontributory. Physical exam: Constitutional - well developed, well-nourished and in no acute distress HEENT - normocephalic, no evidence of trauma - external nose and mouth normal - no mass in neck and no JVD - mucosae moist EYES - full EOM, PERRL, no icterus - no evidence of inflammation, injection, or drainage Respiratory - no respiratory distress, equal bilateral expansion Musculoskeletal tenderness in the posterior right spinous and paraspinous area. Straight leg raise causes pain especially on return to the resting position. The pains on the right side when we raise the right leg and negative when we raise the left. No gross deformity of long bones or joints - no tenderness, swelling or edema Neurologic - Alert and oriented times four - CN II-XII grossly intact - motor sensory and coordination symmetrically normal Psychiatric - appropriate mood and affect with normal thought content Hematologic - No petechiae or purpura - mucosa appropriate color and sclera not pale - normal nail bed color and refill Integument - no rash or evidence of trauma - normal turgor Diagnostics: [] Therapeutics: [] Impression: [] Plan: [] Definitive disposition and diagnosis as appropriate pending reevaluation and review of above. Right Leg Pain Score (Numeric/FACES): 8 - Related Data Allergies Allergy/AdvReac Type Severity Reaction Status Date / Time Penicillins Allergy Other Verified 03/24/21 12:27 sulfamethoxazole Allergy Other Verified 03/24/21 12:27 [From Bactrim] trimethoprim [From Bactrim] Allergy Other Verified 03/24/21 12:27 Home Meds: Home Meds Naproxen Sodium [Aleve] 1 tab PO BID 08/14/19 [History] Acetaminophen [Tylenol] 650 mg PO Q6H PRN tablet 08/15/19 [Rx] diazePAM [Valium] 5 mg PO TID PRN #15 tab 03/24/21 [Rx] predniSONE [Prednisone] 60 mg PO DAILY #21 tablet 03/24/21 [Rx] Past Medical History Respiratory History: Reports: Asthma Musculoskeletal History: Reports: Back Pain, Chronic Neurological History: Reports: Other (See Below) Other Neuro History: sciatica nerve pain, epilespy Psychiatric History: Reports: Other (See Below) Other Psychiatric History: Tourretes - Infectious Disease History Infectious Disease History: Reports: TB Other Infectious Disease History: Patient stated he underwent treatment for 9 months, pt states been inactive for approx 16 years - Past Surgical History HEENT Surgical History: Reports: Myringotomy w Tube(s) Social & Family History - Family History Family Medical History: No Pertinent Family History - Tobacco Use Tobacco Use Status *Q: Current Every Day Tobacco User Years of Tobacco use: 15 Packs/Tins Daily: 1 - Caffeine Use Caffeine Use: Reports: Energy Drinks - Recreational Drug Use Recreational Drug Use: No Review of Systems - Review of Systems Review Of Systems: Comprehensive ROS is negative, except as noted in HPI. ED EXAM, GENERAL - Physical Exam Exam: See Below Free Text/Narrative:: My physical exam is in the HPI Course - Vital Signs Last Recorded V/S: Last Vital Signs Temp 36.7 C 03/24/21 12:24 Pulse 85 03/24/21 12:24 Resp 18 03/24/21 12:24 BP 118/85 03/24/21 12:24 Pulse Ox 97 03/24/21 12:24 - Orders/Labs/Meds Meds: Medications Discontinued Medications Generic Name Dose Route Start Last Admin Trade Name Freq PRN Reason Stop Dose Admin Dexamethasone 10 mg 03/24/21 12:47 03/24/21 13:13 Dexamethasone 10 Mg/Ml Sdv IM 03/24/21 12:48 10 mg STAT STA Administration Departure - Departure Time of Disposition: 13:34 Disposition: Home, Self-Care 01 Condition: Good Clinical Impression: Back spasm, Sciatica - Discharge Information Prescriptions: predniSONE [Prednisone] 60 mg PO DAILY #21 tablet diazePAM [Valium] 5 mg PO TID PRN #15 tab PRN Reason: Muscle Spasm - Painful Instructions: Muscle Strain, [id number], Sciatica Referrals: PCP,None [Primary Care Provider] - Forms: ED Department Discharge Additional Instructions: Return immediately and emergently if you lose control of your bowel or bladder, and lose sensation in your buttocks or legs, lose strength in your lower extremities. Rest and once you have healed exercise strength of your back muscles. [facility] - Primary [facility] [address] [place] [address] [facility] [address] [place] [id number] The following information is given to patients seen in the emergency department who are being discharged to home. This information is to outline your options for follow-up care. We provide all patients seen in our emergency department with a follow-up referral. The need for follow-up, as well as the timing and circumstances, are variable depending upon the specifics of your emergency department visit. If you don't have a primary care physician on staff, we will provide you with a referral. We always advise you to contact your personal physician following an emergency department visit to inform them of the circumstance of the visit and for follow-up with them and/or the need for any referrals to a consulting specialist. The emergency department will also refer you to a specialist when appropriate. This referral assures that you have the opportunity for follow-up care with a specialist. All of these measure are taken in an effort to provide you with optimal care, which includes your follow-up. Under all circumstances we always encourage you to contact your private physician who remains a resource for coordinating your care. When calling for follow-up care, please make the office aware that this follow-up is from your recent emergency room visit. If for any reason you are refused follow-up, please contact the [facility] Emergency Department at and asked to speak to the emergency department charge nurse. Sepsis Event Note (ED) - Focused Exam Vital Signs: Vital Signs Temp Pulse Resp BP Pulse Ox 03/24/21 12:24 36.7 C 85 18 118/85 97
== END 2021-03-24 13:49 | disposition home or self-care (01) ==
LOC: MW.ED 12:09
DX: M54.41 Lumbago with sciatica, right side (principal); M62.830 Muscle spasm of back; Z88.0 Allergy status to penicillin; Z88.1 Allergy status to other antibiotic agents; Z72.0 Tobacco use
CPT/HCPCS: 96372; 99283; J1100